=== PATIENT | male | born 1980 ===

== ENCOUNTER 2020-01-23 22:53 | Emergency (ER) | payer SELFPAY ==
[2020-01-24 00:29] LABS: Basophils % (Auto) 0.2 % (0.0-1.8); Hematocrit 54.5 % (35.5-45.6); Lymphocytes # (Auto) 1.3 K/mm3 (1.2-5.4); Lymphocytes % (Auto) 5.7 % (13.4-35.0); Mean Corpuscular Volume 87 fl (84-94); Monocytes # (Auto) 1.6 K/mm3 (0.0-0.8); Monocytes % (Auto) 7.1 % (0.0-7.3); Platelet Count 251 K/mm3 (140-440); Red Blood Count 6.26 M/mm3 (3.65-5.03); Red Cell Distribution Width 13.4 % (13.2-15.2)
[2020-01-24 00:35] LABS: Hemoglobin 20.8 gm/dl (11.8-15.2); Mean Corpuscular HGB Conc 38 % (32-34)
[2020-01-24 00:44] LABS: Bacteria,Urine 1+ /HPF (Negative); Bilirubin,Urine NEG (Negative); Blood,Urine SM (Negative); Color,Urine Yellow (Yellow); RBC,Urine < 1.0 /HPF (0.0-6.0); Urobilinogen,Urine < 2.0 mg/dL (<2.0); WBC,Urine < 1.0 /HPF (0.0-6.0)
[2020-01-24 00:55] LABS: Albumin 4.5 g/dL (3.9-5); BUN/Creatinine Ratio 22; Blood Urea Nitrogen 11 mg/dL (9-20); Calcium 9.2 mg/dL (8.4-10.2); Hemolysis Index 205
[2020-01-24 01:19] LABS: Alanine Aminotransferase < 5 units/L (7-56)
== END 2020-01-24 02:31 ==
LOC: ED 22:53
DX: R10.30 Lower abdominal pain, unspecified (principal); Z53.21 Procedure and treatment not carried out due to patient leaving prior to being seen by health care provider
CPT/HCPCS: 36415; 80053; 81001; 85025